=== PATIENT | female | born 1950 | race Caucasian/White ===

== ENCOUNTER 2016-10-03 11:00 | Emergency (ER) | payer MEDICARE, OTHER ==
[2016-10-03] MEDS ORDERED: HYDROmorphone HCL 1 MG/ML DISP.SYRIN IV ONE ×2 (11:23→12:47)
[2016-10-03] MEDS ORDERED: HYDROmorphone HCL 1 MG/ML DISP.SYRIN ONE ×2 (11:39→12:48)
--- NOTE | 2016-10-03 12:25 | ERNOTE ---
Back Pain ER HPI Date of Service: 10/03/16 Time Seen by Provider: 10/03/16 11:16 Source: patient Exam Limitations: no limitations Immunizations: IMMUNIZATION HX History of Influenza Vaccine Yes Hx Pneumococcal Vaccination Yes Allergies/Adverse Reactions: Allergies nickel Allergy (Verified 10/03/16 11:14) Home Medications: HOME MEDICATIONS Albuterol Sulfate [Proair Respiclick] 90 mcg IH Q6H 10/03/16 [Last Taken Unknown ] Cholecalciferol [Vitamin D] 2,000 unit PO DAILY 10/03/16 [Last Taken Unknown] Diazepam [Valium] 5 mg PO Q6H 10/03/16 [Last Taken Unknown] Diltiazem HCl [Diltiazem ER] 180 mg PO DAILY 10/03/16 [Last Taken Unknown] Docusate Sodium [Stool Softener] 100 mg PO BID 10/03/16 [Last Taken Unknown] Esomeprazole Magnesium [Nexium] 40 mg PO BID 10/03/16 [Last Taken Unknown] Fluticasone/Salmeterol [Advair 250-50 Diskus] 1 puff IH BID 10/03/16 [Last Taken Unknown] Furosemide [Lasix] 40 mg PO DAILY 10/03/16 [Last Taken Unknown] Losartan Potassium [Cozaar] 100 mg PO DAILY 10/03/16 [Last Taken Unknown] Naproxen [Naprosyn] 500 mg PO BID PRN 10/03/16 [Last Taken Unknown] Potassium Chloride [Klor-Con M10] 10 meq PO DAILY 10/03/16 [Last Taken Unknown] Pravastatin Sodium [Pravachol] 40 mg PO HS 10/03/16 [Last Taken Unknown] oxyCODONE HCL [Oxycodone] 5 mg PO Q6H PRN 10/03/16 [Last Taken Unknown] traMADol HCL [Ultram] 50 mg PO QID PRN 10/03/16 [Last Taken Unknown] Narrative: Patient presents to the ED for severe back pain. She was just released from the hospital yesterday. She has been having increased pain in the back not controled by Dilaudid or tramadol. She could not stand it anymore so called EMS. no acute new focal N/T/W. No loss of bowel or bladder control. No new falls. Pain 8/10. Timing: Reports: constant Quality/Severity: Reports: severe Location of pain: Reports: mid back Activities at Onset: Reports: none Recent Injury?: Reports: no Possible Precipitating Factor: Reports: other - recent surgery Modifying Factors - (Improves): Reports: nothing Modifying Factors - (Worsens): Reports: other - movement Associated Symptoms: Denies: fever/chills, constipation/incontinence, problems urinating, numbess/weakness in legs Review of Systems - Review of Systems Constitutional: Absent: fever Respiratory: Absent: shortness of breath Cardiology: Absent: chest pain Gastrointestinal/Abdominal: Absent: diarrhea, abdominal pain Genitourinary: Absent: dysuria Musculoskeletal: Present: See HPI Skin: Absent: rash Neurological: Present: See HPI All Other Systems: All systems neg except as marked - Patient's Past Medical History Patient History - Medical: Chronic Pain Patient History - Cancer: No Hx of Cancer Patient History - Surgical Procedures: Appendectomy, Back Surgery, Hysterectomy , Tubal Ligation - Social History Living Situations: home Physical Exam - Physical Exam General Appearance: Present: other - appears to be in pain, especially with movement Eye Exam: Normal inspection: bilateral, PERRL: bilateral Ears, Nose, Throat: Absent: nasal congestion Neck: Present: normal inspection Respiratory: Present: no respiratory distress, normal breath sounds, no accessory muscle use, lungs clear Cardiovascular/Chest: Present: regular rate, rhythm, no murmur, normal peripheral pulses Gastrointestinal/Abdominal: Present: normal bowel sounds, nontender, soft, no organomegaly. Absent: tenderness Back Exam: Present: other - bandages in place, tenderenss noted. no CVA tendenress Neurological Exam: Present: alert, normal mood/affect, no motor/sensory deficits , other - I find no acute focal motor or snesory deficits given limitation d/t pain. No evidence of cauda equina syndrome Skin Exam: Absent: skin rash ED Progress - Vital Signs Patient's Vital Signs:: I have reviewed the patient's vital signs. Vital Signs: Vital Signs 10/03/16 11:03 Temperature 36.2 C L Pulse Rate 94 Respiratory 12 Rate Blood Pressure 175/91 O2 Sat by Pulse 99 Oximetry - Progress/Reassessment Chief Complaint: Back Pain Progress:: Unchanged Progress Note-Subjective: 10/03/16 12:[address] Clayton at [facility], transfer accepted. Patient post op there and just d/c's. Stable for transfer at this time. Departure Clinical Impression: Back pain - Departure Disposition: [facility] Referrals: Reese Mckeon MD [Primary Care Provider] -
[2016-10-03 12:44] VITALS: BP 148/79
== END 2016-10-03 12:42 | disposition short-term general hospital (02) ==
LOC: ER 11:00
DX: M54.9 Dorsalgia, unspecified (principal)